=== PATIENT | female | born 1980 | race African-American/Black ===

== ENCOUNTER 2017-02-16 18:38 | Emergency (ER) | payer MEDICARE, OTHER ==
[~2017-02-16 18:38] MED LIST: AMOX875T PO; CHLO.12%30 SSP; TRAM50 PO
[2017-02-16 18:40] VITALS: BP 109/71; PULSE 108; RESP 16; TEMP 98.2; O2SAT 98
[2017-02-16] MEDS ORDERED: SODIUM CHLORIDE 0.9% FLUSH 10 ML FLUSH IVF PRN (22:15)
--- NOTE | 2017-02-16 22:16 | PD ---
HPI Chief Complaint: Respiratory Symptoms Time Seen by Provider: 22:16 Travel History International Travel<30 days: No Contact w/Intl Traveler<30days: No Traveled to known affect area: No History of Present Illness HPI 36-year-old female with a history of neurofibromatosis type 2 with vestibular schwannoma presents to the emergency department for evaluation of headache with dizziness for 3-4 days and cough for 2 days. Patient states that she last received radiation therapy at [facility] for her tumor December 08, 2016. States that she does occasionally get headaches secondary to her tumor but that this headache is a little worse and is also associated with some dizziness. States that the past 2 days she has had a productive cough with green sputum with mild shortness of breath and chest pain. Chest pain and shortness of breath is aggravated with coughing. Denies any fever, chills, nausea, vomiting, abdominal pain, diarrhea. Denies , last menstrual period 02/01/70. The patient states that she had pneumonia several years ago and that her symptoms now feel similar. Denies any history of lung disease or smoking. Denies any recent travel or sick contacts. Denies any history of blood clots or heart disease. PCP Dr. Soto. No other complaints. PFSH Past Medical History Neurologic: Yes (neurofibromatosis) Social History Alcohol Use: No Tobacco Use: No Substance Use: No Allergies-Medications (Allergen,Severity, Reaction): Coded Allergies: No Known Allergies (Unverified , 02/16/17) Reported Meds & Prescriptions Reported Meds & Active Scripts Active Ultram (Tramadol HCl) 50 Mg Tab 1 Tab PO Q6 PRN FOR PAIN Peridex Oral Rinse (Chlorhexidine Gluconate) 0.12 % Jia 15 Ml SSP BID 10 Days Amoxil (Amoxicillin) 875 Mg Tab 875 Mg PO BID 10 Days Review of Systems Except as stated in HPI: all other systems reviewed are Neg Physical Exam Narrative GENERAL: Well-nourished and well-developed pleasant female patient in no acute distress who is nontoxic appearing. SKIN: Warm and dry. HEAD: Normocephalic and atraumatic. EYES: No injection, drainage, or hyphema noted. PERRLA. EOMI. ENT: No nasal drainage noted. Oropharynx is clear. NECK: Supple and the trachea is midline. CARDIOVASCULAR: Regular rate and rhythm. RESPIRATORY: Breath sounds are equal bilaterally with no accessory muscle use, wheezing, rhonchi, or crackles. GASTROINTESTINAL: Abdomen is soft, non-tender, and nondistended. MUSCULOSKELETAL: No obvious deformities, swelling, cyanosis, or ecchymosis is present throughout the upper and lower extremities. Patient has full range of motion without any signs of neurovascular compromise. NEUROLOGICAL: Awake, alert, and oriented. Normal speech and gait. Cranial nerves are grossly intact. Data Data Last Documented VS Vital Signs Date Time Temp Pulse Resp B/P Pulse Ox O2 Delivery O2 Flow Rate FiO2 02/16/17 22:43 18 02/16/17 22:43 Room Air 02/16/17 18:40 98.2 108 109/71 98 Orders Electrocardiogram (02/16/17 22:13) Basic Metabolic Panel (Bmp) (02/16/17 22:13) Complete Blood Count With Diff (02/16/17 22:13) D-Dimer (02/16/17 22:13) Prothrombin Time / Inr (Pt) (02/16/17 22:13) Act Partial Throm Time (Ptt) (02/16/17 22:13) Troponin I (02/16/17 22:13) Ecg Monitoring (02/16/17 22:13) Iv Access Insert/Monitor (02/16/17 22:13) Oximetry (02/16/17 22:13) Sodium Chloride 0.9% Flush (Ns Flush) (02/16/17 22:15) Chest, Pa & Lat (02/16/17 22:13) Sodium Chlor 0.9% 1000 Ml Inj (Ns 1000 M (02/16/17 22:17) Acetaminophen (Tylenol) (02/16/17 22:30) Ct Brain W/O Iv Contrast(Rout) (02/16/17 22:33) Prochlorperazine Inj (Compazine Inj) (02/16/17 23:00) Diphenhydramine Inj (Benadryl Inj) (02/16/17 23:00) Labs Laboratory Tests Test 02/16/17 22:40 White Blood Count 5.2 TH/MM3 Red Blood Count 4.46 MIL/MM3 Hemoglobin 11.4 GM/DL Hematocrit 34.8 % Mean Corpuscular Volume 78.1 FL Mean Corpuscular Hemoglobin 25.6 PG Mean Corpuscular Hemoglobin 32.8 % Concent Red Cell Distribution Width 17.1 % Platelet Count 279 TH/MM3 Mean Platelet Volume 7.7 FL Neutrophils (%) (Auto) 74.1 % Lymphocytes (%) (Auto) 7.7 % Monocytes (%) (Auto) 17.6 % Eosinophils (%) (Auto) 0.1 % Basophils (%) (Auto) 0.5 % Neutrophils # (Auto) 3.9 TH/MM3 Lymphocytes # (Auto) 0.4 TH/MM3 Monocytes # (Auto) 0.9 TH/MM3 Eosinophils # (Auto) 0.0 TH/MM3 Basophils # (Auto) 0.0 TH/MM3 CBC Comment DIFF FINAL Differential Comment MDM Medical Decision Making Medical Screen Exam Complete: Yes Emergency Medical Condition: Yes Differential Diagnosis Bronchitis versus pneumonia versus URI versus PE versus viral syndrome versus other Narrative Course 36-year-old female with a history of neurofibromatosis and schwannoma presents to the emergency department for evaluation of headache with productive cough and shortness of breath. Patient is afebrile. She is tachycardic with a Heart rate 108 bpm. Otherwise vital signs are within normal limits. Physical examination is unremarkable. IV access is obtained, labs obtained and drawn and sent. Patient is administered IV fluids and Tylenol. Chest x-ray and head CT have been ordered and are pending. Patient signed out to Dr. Anaya who will assume care of the patient and disposition. Zaira Silva Feb 16, 2017 22:16
[2017-02-16] MEDS ORDERED: SODIUM CHLOR 0.9% 1000 ML INJ 1,000 ML IV SCH (22:17)
[2017-02-16] MEDS ORDERED: ACETAMINOPHEN 500 MG CPLT PO ONE (22:30)
--- NOTE | 2017-02-16 22:38 | RADRPT ---
EXAM DATE/TIME: 02/16/2017 22:39 [facility] COMPARISON: No previous studies available for comparison. INDICATIONS : Cough. MEDICAL HISTORY : None. SURGICAL HISTORY : None. ENCOUNTER: Initial ACUITY: 1 day PAIN SCORE: 3/10 LOCATION: Bilateral chest FINDINGS: PA and lateral views of the chest demonstrate the lungs to be symmetrically aerated without evidence of mass, infiltrate or effusion. The cardiomediastinal contours are unremarkable. Osseous structure s are intact. CONCLUSION: No acute disease. John Franco MD on February 16, 2017 at 22:36 Board Certified Radiologist. This report was verified electronically.
[2017-02-16 22:43] VITALS: RESP 18
[2017-02-16 22:52] LABS: AUTOMATED NEUTROPHIL # 3.9 TH/MM3 (1.8-7.7); BASOPHIL % 0.5 % (0.0-2.0); EOSINOPHIL % 0.1 % (0.0-4.0); HEMATOCRIT 34.8 % (35.0-46.0); HEMO FLAGS DIFF FINAL; LYMPH % 7.7 % (9.0-44.0); LYMPHOCYTE # 0.4 TH/MM3 (1.0-4.8); MEAN CELL VOLUME 78.1 FL (80.0-100.0); MEAN CORPUSCULAR HEMOGLOBIN 25.6 PG (27.0-34.0); MEAN CORPUSCULAR HGB CONC 32.8 % (32.0-36.0); MONO % 17.6 % (0.0-8.0); NEUT % 74.1 % (16.0-70.0); PLATELET COUNT 279 TH/MM3 (150-450); RED BLOOD COUNT 4.46 MIL/MM3 (4.00-5.30); RED CELL DISTRIBUTION WIDTH 17.1 % (11.6-17.2); WHITE BLOOD COUNT 5.2 TH/MM3 (4.0-11.0)
[2017-02-16] MEDS ORDERED: PROCHLORPERAZINE INJ 10 MG/2 ML VIAL IV PUSH ONE (23:00)
[2017-02-16] MEDS ORDERED: diphenhydrAMINE HCL 50 MG/ML VIAL IV PUSH ONE (23:00)
[2017-02-16 23:06] LABS: ANION GAP 8 MEQ/L (5-15); BICARBONATE 24.7 MEQ/L (21.0-32.0); BLOOD UREA NITROGEN 7 MG/DL (7-18); CHLORIDE 104 MEQ/L (98-107); GLOMERULAR FILTRATION RATE 105 ML/MIN (>89); POTASSIUM 4.3 MEQ/L (3.5-5.1); SODIUM (NA) 137 MEQ/L (136-145)
[2017-02-16 23:07] LABS: APTT (PATIENT) 26.2 SEC (24.3-30.1); PROTHROMBIN TIME - PATIENT 11.4 SEC (9.8-11.6)
[2017-02-17] MEDS ORDERED: IOHEXOL 350 MG/ML 10 ML VIAL (for RAD DIAG) IV ONE (00:30)
--- NOTE | 2017-02-17 00:52 | RADRPT ---
EXAM DATE/TIME: 02/17/2017 00:17 [facility] COMPARISON: No previous studies available for comparison. INDICATIONS : Cough, shortness of breath and chest pains for two days IV CONTRAST: 60 cc Omnipaque 350 (iohexol) IV RADIATION DOSE: 19.48 CTDIvol (mGy) MEDICAL HISTORY : Neurofibromatosis. Vestibular schwannoma. Radiation therapy. SURGICAL HISTORY : Craniotomy. ENCOUNTER: Initial ACUITY: 2 days PAIN SCALE: 5/10 LOCATION: Bilateral chest TECHNIQUE: Volumetric scanning of the chest was performed using a pulmonary embolism protocol MIP images were re constructed. Using automated exposure control and adjustment of the mA and/or kV according to patien t size, radiation dose was kept as low as reasonably achievable to obtain optimal diagnostic quality images. FINDINGS: PULMONARY ARTERIES: No filling defects are seen in the pulmonary arteries through the segmental level. LUNGS: There is no consolidation or pneumothorax . No concerning pulmonary nodule is visualized. PLEURAE: There is no pleural thickening or pleural effusion. MEDIASTINUM: There is good visualization of the great vessels of the middle mediastinum. No evidence of mediastin al or hilar adenopathy/mass. MUSCULOSKELETAL: Within normal limits for patient age. MISCELLANEOUS: The visualized upper abdominal organs demonstrate no acute abnormality. CONCLUSION: Normal examination. Simon Elizalde MD on February 17, 2017 at 0:46 Board Certified Radiologist. This report was verified electronically.
--- NOTE | 2017-02-17 00:54 | RADRPT ---
EXAM DATE/TIME: 02/17/2017 00:14 [facility] COMPARISON: No previous studies available for comparison. INDICATIONS : Cephalgia with dizziness for three days RADIATION DOSE: 56.35 CTDIvol (mGy) MEDICAL HISTORY : Neurofibromatosis. Vestibular schwannoma. SURGICAL HISTORY : Craniotomy. ENCOUNTER: Initial ACUITY: 3 days PAIN SCALE: 7/10 LOCATION: Bilateral cranial TECHNIQUE: Multiple contiguous axial images were obtained of the head. Using automated exposure control and adj ustment of the mA and/or kV according to patient size, radiation dose was kept as low as reasonably a chievable to obtain optimal diagnostic quality images. FINDINGS: There are postoperative changes of prior craniotomies in the posterior fossa with encephalomalacia in the right cerebellar hemisphere. No acute intracranial mass, hemorrhage or shift. No hydrocephalus. No abnormal extra-axial fluid collections are present. Subcutaneous soft tissue nodule present in the right frontal region. CONCLUSION: 1. No acute findings. Previous craniotomies in the posterior fossa with some encephalomalacia in the right cerebellum. Supratentorial brain unremarkable. Simon Elizalde MD on February 17, 2017 at 0:50 Board Certified Radiologist. This report was verified electronically.
[2017-02-17] MEDS ORDERED: BUTA1CAP PO (03:08)
--- NOTE | 2017-02-17 03:08 | PD ---
Physical Exam Narrative I, Dr. Anaya, have reviewed the advance practice practitioner's documentation and am in agreement, met with the patient face to face, made the diagnosis, and the medical decision making was done by me. *My assessment and Findings: Patient is a 36-year-old female with history of schwannoma, who comes in complaining of headache and general body aches and cough. Exam shows no neurologic abnormalities. Lungs are clear to auscultation. Patient is slightly tachycardic. Data Data Last Documented VS Orders Electrocardiogram (02/16/17 22:13) Basic Metabolic Panel (Bmp) (02/16/17 22:13) Complete Blood Count With Diff (02/16/17 22:13) D-Dimer (02/16/17 22:13) Prothrombin Time / Inr (Pt) (02/16/17 22:13) Act Partial Throm Time (Ptt) (02/16/17 22:13) Troponin I (02/16/17 22:13) Ecg Monitoring (02/16/17 22:13) Iv Access Insert/Monitor (02/16/17 22:13) Oximetry (02/16/17 22:13) Sodium Chloride 0.9% Flush (Ns Flush) (02/16/17 22:15) Chest, Pa & Lat (02/16/17 22:13) Sodium Chlor 0.9% 1000 Ml Inj (Ns 1000 M (02/16/17 22:17) Acetaminophen (Tylenol) (02/16/17 22:30) Ct Brain W/O Iv Contrast(Rout) (02/16/17 22:33) Prochlorperazine Inj (Compazine Inj) (02/16/17 23:00) Diphenhydramine Inj (Benadryl Inj) (02/16/17 23:00) Ct Pulmonary Angiogram (02/17/17 ) Iohexol 350 Inj (Omnipaque 350 Inj) (02/17/17 00:30) Labs MDM Supervised Visit with LIZ: Yes Narrative Course Patient is feeling much better. She says her headache is gone and she is no longer having any pain. Labs showed an elevated D-dimer. CTA chest performed shows no PE, no abnormalities. All other labs are within normal limits. Patient will be discharged with prescription for fioricet to take for headaches. Advised to follow up with her PCP. Advised to return to the ED as needed for any worsening symptoms. Diagnosis Primary Impression: Headache Qualified Code: R51 - Acute nonintractable headache, unspecified headache type Additional Impression: URI (upper respiratory infection) Qualified Code: J06.9 - Viral upper respiratory tract infection Patient Instructions: Acute Headache (ED), General Instructions, Upper Respiratory Infection (ED) Additional Instruction: You can take fioricet as needed for headache. Follow up with your doctors. Return to the ED as needed for any worsening symptoms. Scripts Vyurifxlgs-Jjbviovoafztt-Cwysovyj (Fioricet)50-300-40 Mg Cap1 Cap PO Q4H PRN ( HEADACHE) #10 CAP Ref 0 Prov:Verónica Anaya MD 02/17/17 Disposition: 01 DISCHARGE HOME Condition: Stable Verónica Anaya MD Feb 17, 2017 03:08 Basophils (%) (Auto) 0.5 % Neutrophils # (Auto) 3.9 TH/MM3 Lymphocytes # (Auto) 0.4 TH/MM3 Monocytes # (Auto) 0.9 TH/MM3 Eosinophils # (Auto) 0.0 TH/MM3 Basophils # (Auto) 0.0 TH/MM3 CBC Comment DIFF FINAL Differential Comment Prothrombin Time 11.4 SEC Prothromb Time International 1.0 RATIO Ratio Activated Partial 26.2 SEC Thromboplast Time D-Dimer Quantitative (PE/DVT) 1.16 MG/L FEU Sodium Level 137 MEQ/L Potassium Level 4.3 MEQ/L Chloride Level 104 MEQ/L Carbon Dioxide Level 24.7 MEQ/L Anion Gap 8 MEQ/L Blood Urea Nitrogen 7 MG/DL Creatinine 0.76 MG/DL Estimat Glomerular Filtration 105 ML/MIN Rate Random Glucose 94 MG/DL Calcium Level 8.6 MG/DL Troponin I LESS THAN 0.02 NG/ML MDM Supervised Visit with LIZ: Yes Narrative Course Patient is feeling much better. She says her headache is gone and she is no longer having any pain. Labs showed an elevated D-dimer. CTA chest performed shows no PE, no abnormalities. All other labs are within normal limits. Patient will be discharged with prescription for fioricet to take for headaches. Advised to follow up with her PCP. Advised to return to the ED as needed for any worsening symptoms. Diagnosis Primary Impression: Headache Qualified Code: R51 - Acute nonintractable headache, unspecified headache type Additional Impression: URI (upper respiratory infection) Qualified Code: J06.9 - Viral upper respiratory tract infection Patient Instructions: Acute Headache (ED), General Instructions, Upper Respiratory Infection (ED) Additional Instruction: You can take fioricet as needed for headache. Follow up with your doctors. Return to the ED as needed for any worsening symptoms. Scripts Xrfgxrmtat-Ygoqficdfwzxq-Bxlrxbrv (Fioricet)50-300-40 Mg Cap1 Cap PO Q4H PRN ( HEADACHE) #10 CAP Ref 0 Prov:Verónica Anaya MD 02/17/17 Disposition: 01 DISCHARGE HOME Condition: Stable Verónica Anaya MD Feb 17, 2017 03:08
--- NOTE | 2017-02-17 20:34 | EKG ---
Date Performed: 02/16/2017 Time Performed: 22:57:21 PTAGE: 36 years EKG: Sinus rhythm POSSIBLE RIGHT VENTRICULAR CONDUCTION DELAY NONSPECIFIC T-WAVE ABNORMALITY BORDERLINE ECG NO PREVIOUS TRACING DOCTOR: Isaiah Raygoza Interpretating Date/Time 02/17/2017 20:33:48
== END 2017-02-17 08:29 | disposition home or self-care (01) ==
LOC: NEPC 18:38
DX: R51 Headache (principal); J06.9 Acute upper respiratory infection, unspecified; R94.31 Abnormal electrocardiogram [ECG] [EKG]
CPT/HCPCS: 70450; 71020; 71275; 80048; 84484; 85025; 85379; 85610; 85730; 93005; 96361; 96374; 96375; 99284; J0780; J1200; J7030; Q9967